=== PATIENT | male | born 1955 | race Caucasian/White ===

== ENCOUNTER 2023-10-25 17:53 | Inpatient (IN) | payer MEDICAID ==
[~2023-10-25] VITALS: Ht 157.5 cm; Wt 53.5 kg
[2023-10-25 18:21] VITALS: BP 109/68; PULSE 70; RESP 18; TEMP 98; O2SAT 99
[2023-10-25] MEDS: KETOROLAC 30 MG/ML VIAL IVP ONE (18:55)
[2023-10-25 18:59] LABS: BASOPHILS % (AUTO) 0.6 % (0.0-2.0); EOSINOPHILS % (AUTO) 0.2 % (0.0-4.0); HEMATOCRIT 36.1 % (36-52); HEMOGLOBIN 12.2 g/dL (12.0-18.0); LYMPHOCYTES # (AUTO) 1.7 K/uL (2.0-11.5); LYMPHOCYTES % (AUTO) 25.9 % (20.5-51.1); MEAN CORPUSCULAR HEMOGLOBIN 28 pg (27-31); MEAN CORPUSCULAR HGB CONC 34 g/dL (33-37); MEAN CORPUSCULAR VOLUME 82.2 fL (80-94); MONOCYTES # (AUTO) 0.5 K/uL (0.8-1.0); MONOCYTES % (AUTO) 7.2 % (1.7-9.3); NEUTROPHILS # (AUTO) 4.4 K/uL (1.8-7.7); NEUTROPHILS % (AUTO) 66.1 % (42.2-75.2); PLATELET COUNT (AUTO) 250 K/uL (140-450); RED BLOOD CELL COUNT(AUTO) 4.39 MIL/uL (4.20-6.10); RED CELL DISTRIBUTION WIDTH 16.2 % (11.6-13.7); WHITE BLOOD COUNT (AUTO) 6.6 K/uL (4.8-10.8)
[2023-10-25 19:05] LABS: APPEARANCE,URINE CLEAR (CLEAR); BILIRUBIN,URINE NEGATIVE (NEGATIVE); BLOOD, URINE NEGATIVE (NEGATIVE); COLOR,URINE YELLOW (YELLOW); LEUKOCYTE ESTERASE ,URINE NEGATIVE (NEGATIVE); NITRITE, URINE NEGATIVE (NEGATIVE); PROTEIN,URINE NEGATIVE (NEGATIVE); UGLUCOSE NEGATIVE (NEGATIVE); UROBILINOGEN,URINE 0.2 EU/dL (0.2 - 1)
[2023-10-25 19:09] LABS: ANION GAP 16.3 (8-16); CARBON DIOXIDE 21.4 mmol/L (21-32); POTASSIUM 3.7 mmol/L (3.5-5.1)
[2023-10-25 19:19] LABS: ALANINE AMINOTRANSFERASE 44 U/L (12-78); ALBUMIN 3.8 g/dL (3.4-5.0); ALKALINE PHOSPHATASE 71 U/L (50-136); ASPARTATE AMINOTRANSFERASE 24 U/L (15-37); BILIRUBIN,DIRECT 0.2 mg/dL (0.0-0.3); LACTIC ACID 0.6 mmol/L (0.4-2.0); TOTAL BILIRUBIN 0.5 mg/dL (0.0-1.0); TOTAL PROTEIN, SERUM 6.8 g/dL (6.4-8.2)
[2023-10-25] MEDS ORDERED: cefTRIAXone 1,000 MG VIAL ONE (19:50)
[2023-10-25] MEDS: NACL 0.9% 1,000 ML IV SCH (19:53)
[2023-10-25] MEDS: cefTRIAXone 1,000 MG in DEXT 5% MINI-BAG PLUS 50 ML IV ONE (19:57)
[2023-10-25] MEDS ORDERED: MORPHINE SULFATE 2 MG/ML SYR IVP PRN (20:10)
[2023-10-25] MEDS ORDERED: ACETAMINOPHEN 325 MG TAB PO PRN (20:10)
[2023-10-25 21:36] LABS: FLU A ANTIGEN negative (NEGATIVE); FLU B ANTIGEN NEGATIVE (NEGATIVE)
[2023-10-25] MEDS ORDERED: HYDR-133 PO (23:52)
[2023-10-25] MEDS ORDERED: LOSA-272 PO (23:52)
[2023-10-26] VITALS (8 sets, daily range): BP systolic 117–133; BP diastolic 65–85; PULSE 40–50; RESP 12–20; TEMP 97.9–98.3; O2SAT 96–100
[2023-10-26 08:30] LABS: EOSINOPHILS # (AUTO) 0.1 K/uL (0-0.4); EOSINOPHILS % (AUTO) 2.4 % (0.0-4.0); HEMATOCRIT 33.3 % (36-52); HEMOGLOBIN 11.3 g/dL (12.0-18.0); LYMPHOCYTES # (AUTO) 1.6 K/uL (2.0-11.5); LYMPHOCYTES % (AUTO) 34.2 % (20.5-51.1); MEAN CORPUSCULAR HEMOGLOBIN 28 pg (27-31); MEAN CORPUSCULAR HGB CONC 34 g/dL (33-37); MEAN CORPUSCULAR VOLUME 82.9 fL (80-94); MONOCYTES # (AUTO) 0.4 K/uL (0.8-1.0); MONOCYTES % (AUTO) 8.3 % (1.7-9.3); NEUTROPHILS # (AUTO) 2.5 K/uL (1.8-7.7); NEUTROPHILS % (AUTO) 54.1 % (42.2-75.2); PLATELET COUNT (AUTO) 211 K/uL (140-450); RED BLOOD CELL COUNT(AUTO) 4.01 MIL/uL (4.20-6.10); RED CELL DISTRIBUTION WIDTH 16.3 % (11.6-13.7); WHITE BLOOD COUNT (AUTO) 4.6 K/uL (4.8-10.8)
[2023-10-26 09:00] LABS: ALBUMIN 3.3 g/dL (3.4-5.0); ANION GAP 13.4 (8-16); CALCIUM 7.7 mg/dL (8.5-10.1); CARBON DIOXIDE 22.8 mmol/L (21-32); CREATININE 1.5 mg/dL (0.6-1.3); MAGNESIUM 2.2 mg/dL (1.8-2.4); PHOSPHORUS 3.7 mg/dL (2.5-4.9); POTASSIUM 3.2 mmol/L (3.5-5.1); TOTAL BILIRUBIN 0.5 mg/dL (0.0-1.0); TOTAL PROTEIN, SERUM 6.1 g/dL (6.4-8.2)
[2023-10-26] MEDS: POTASSIUM CHLORIDE 10 MEQ TABER PO ONE (10:40)
[2023-10-26] MEDS: NACL 0.9% 1,000 ML IV SCH (10:40)
[2023-10-26] MEDS: HYDROcodone/APAP 5/325 MG 1 TAB TAB PO PRN (10:42)
[2023-10-26] MEDS: DEXT 5% /NACL 0.9% 1,000 ML IV SCH (15:21)
[2023-10-27] VITALS: BP 123/67; PULSE 42; PULSE 46; RESP 23; TEMP 97.3; O2SAT 99
[2023-10-27 04:00] VITALS: BP 123/63; PULSE 56; RESP 12; RESP 20; TEMP 97.6; O2SAT 98
[2023-10-27 05:37] LABS: BASOPHILS % (AUTO) 1.2 % (0.0-2.0); EOSINOPHILS # (AUTO) 0.1 K/uL (0-0.4); EOSINOPHILS % (AUTO) 3.5 % (0.0-4.0); HEMATOCRIT 33.2 % (36-52); HEMOGLOBIN 11.1 g/dL (12.0-18.0); LYMPHOCYTES # (AUTO) 1.3 K/uL (2.0-11.5); LYMPHOCYTES % (AUTO) 30.9 % (20.5-51.1); MEAN CORPUSCULAR HEMOGLOBIN 28 pg (27-31); MEAN CORPUSCULAR HGB CONC 33 g/dL (33-37); MEAN CORPUSCULAR VOLUME 83.1 fL (80-94); MONOCYTES # (AUTO) 0.3 K/uL (0.8-1.0); MONOCYTES % (AUTO) 8.4 % (1.7-9.3); NEUTROPHILS # (AUTO) 2.3 K/uL (1.8-7.7); PLATELET COUNT (AUTO) 198 K/uL (140-450); RED BLOOD CELL COUNT(AUTO) 3.99 MIL/uL (4.20-6.10); RED CELL DISTRIBUTION WIDTH 16.5 % (11.6-13.7); WHITE BLOOD COUNT (AUTO) 4.1 K/uL (4.8-10.8)
[2023-10-27 06:24] LABS: ANION GAP 13.4 (8-16); CALCIUM 7.8 mg/dL (8.5-10.1); CARBON DIOXIDE 22.2 mmol/L (21-32); CREATININE 1.1 mg/dL (0.6-1.3); POTASSIUM 3.6 mmol/L (3.5-5.1)
[2023-10-27 08:00] VITALS: BP 128/62; PULSE 56; PULSE 58; RESP 20; TEMP 97.3; TEMP 97.5; O2SAT 98
[2023-10-27 09:06] LABS: PROSTATE SPECIFIC AG TOTAL 3.5 ng/mL (0.0-4.0)
[2023-10-27] MEDS: MIDAZOLAM 5 MG/5 ML VIAL ONE (09:26)
[2023-10-27] MEDS: diphenhydrAMINE 50 MG/ML VIAL ONE (09:26)
[2023-10-27] MEDS: fentaNYL citrate 0.05 MG/ML VIAL ONE (09:26)
[2023-10-27] MEDS: MIDAZOLAM 2 MG/2 ML VIAL IVP ONE (09:48)
[2023-10-27] MEDS: fentaNYL citrate 0.05 MG/ML VIAL IVP ONE (09:49)
[2023-10-27 10:06] LABS: CARCINOEMBRYONIC AG 1.3 ng/mL (0.0-4.7)
[2023-10-27 12:00] VITALS: BP 118/76; PULSE 52; RESP 20; TEMP 97.6; O2SAT 100
[2023-10-27 16:00] VITALS: BP 125/69; PULSE 52; PULSE 55; RESP 20; TEMP 97.8; O2SAT 100
[2023-10-27 20:00] VITALS: BP_SYST 104; BP_SYST 122; BP_DIAS 60; BP_DIAS 66; PULSE 53; PULSE 69; RESP 18; RESP 19; TEMP 98.5; TEMP 98.9; O2SAT 100; O2SAT 95
[2023-10-28 04:00] VITALS: BP 147/61; PULSE 51; RESP 19; TEMP 97.7; O2SAT 95
[2023-10-28 07:16] LABS: ANION GAP 12.7 (8-16); CALCIUM 7.5 mg/dL (8.5-10.1); CARBON DIOXIDE 22.8 mmol/L (21-32); CREATININE 0.9 mg/dL (0.6-1.3); POTASSIUM 3.5 mmol/L (3.5-5.1)
[2023-10-28 07:56] LABS: BASOPHILS # (AUTO) 0.1 K/uL (0.00-0.22); EOSINOPHILS # (AUTO) 0.2 K/uL (0-0.4); EOSINOPHILS % (AUTO) 4.6 % (0.0-4.0); HEMATOCRIT 31.2 % (36-52); HEMOGLOBIN 10.3 g/dL (12.0-18.0); LYMPHOCYTES # (AUTO) 0.9 K/uL (2.0-11.5); LYMPHOCYTES % (AUTO) 16.7 % (20.5-51.1); MEAN CORPUSCULAR HEMOGLOBIN 28 pg (27-31); MEAN CORPUSCULAR HGB CONC 33 g/dL (33-37); MEAN CORPUSCULAR VOLUME 84.6 fL (80-94); MONOCYTES # (AUTO) 0.4 K/uL (0.8-1.0); MONOCYTES % (AUTO) 8.5 % (1.7-9.3); NEUTROPHILS # (AUTO) 3.5 K/uL (1.8-7.7); NEUTROPHILS % (AUTO) 69.2 % (42.2-75.2); PLATELET COUNT (AUTO) 163 K/uL (140-450); RED BLOOD CELL COUNT(AUTO) 3.69 MIL/uL (4.20-6.10); RED CELL DISTRIBUTION WIDTH 16.5 % (11.6-13.7); WHITE BLOOD COUNT (AUTO) 5.1 K/uL (4.8-10.8)
[2023-10-28 08:00] VITALS: BP 124/62; PULSE 46; PULSE 53; RESP 18; RESP 20; TEMP 98.1; TEMP 98.9; O2SAT 100
[2023-10-28] MEDS ORDERED: SULF-58 PO (10:40)
[2023-10-28 11:32] VITALS: BP 124/62; PULSE 46; RESP 20; TEMP 98
== END 2023-10-28 13:44 | disposition home or self-care (01) | DRG 243 ==
LOC: MED 17:53 → MTU 20:17 → MIC 10-26 06:42 → MTU 10-27 07:55
PROVIDERS: ADMIT Student in an Organized Health Care Education/Training Program; ATTEND Student in an Organized Health Care Education/Training Program
PROC: 0DB68ZX Excision of Stomach, Via Natural or Artificial Opening Endoscopic, Diagnostic (ICD-10-PCS; 2023-10-27)
PROC: 0DB98ZX Excision of Duodenum, Via Natural or Artificial Opening Endoscopic, Diagnostic (ICD-10-PCS; principal; 2023-10-27 10:30)
DX: K21.00 Gastro-esophageal reflux disease with esophagitis, without bleeding (principal); N17.0 Acute kidney failure with tubular necrosis; E87.1 Hypo-osmolality and hyponatremia; I13.10 Hypertensive heart and chronic kidney disease without heart failure, with stage 1 through stage 4 chronic kidney disease, or unspecified chronic kidney disease; N39.0 Urinary tract infection, site not specified; Z20.822 Contact with and (suspected) exposure to COVID-19; E88.09 Other disorders of plasma-protein metabolism, not elsewhere classified; E86.0 Dehydration; D50.9 Iron deficiency anemia, unspecified; N18.9 Chronic kidney disease, unspecified
CPT/HCPCS: 36415; 71045; 74170; 76770; 80048; 80053; 80076; 81003; 82378; 82948; 83036; 83605; 83735; 83880; 84100; 84154; 84300; 84484; 85025; 87040; 87081; 87086; 93005; 96365; 96375; 99285; J0696; J1200; J1885; J2250; J3010; Q0092; Q9967